=== PATIENT | male | born 1975 | race Caucasian/White ===

== ENCOUNTER → 2018-03-23 | Outpatient (CLI) | payer BC ==
--- NOTE | 2018-03-24 08:04 | MR ---
EXAMINATION TYPE: MR brain wo/w con DATE OF EXAM: 03/24/2018 COMPARISON: NONE HISTORY: Neurofibromatosis type I TECHNIQUE: Multiplanar, multisequence images of the brain and brainstem is performed without and with IV contras t, utilizing 5.5 mL intravenous Gadavist . FINDINGS: Diffusion weighted images demonstrate no evidence of a recent infarct or other diffusion ab normality. There is no extra-axial fluid collection or significant white matter signal abnormality. The ventricular system and cisternal spaces are normal in size and appearance. The brain volume is age appropriate. Midline structures demonstrate normal morphology. The craniocervical junction appears within normal limits. Post contrast images demonstrate no abnormal intracranial enhancement. There are some cutane ous and subcutaneous enhancing nodules or neurofibromas identified along the periphery The dural veno us sinuses appear patent. The visualized sinuses are clear. The globes are symmetric and normal in si ze. IMPRESSION: Cutaneous and subcutaneous neurofibromas, no suspicious enhancing intracranial mass
== END | disposition home or self-care (01) ==
LOC: RADMRIMAIN 19:37
PROVIDERS: ATTEND Psychiatry & Neurology Neurology
DX: D36.10 Benign neoplasm of peripheral nerves and autonomic nervous system, unspecified (principal)
CPT/HCPCS: 70553; A9581